=== PATIENT | male | born 1970 | race Asian ===

== ENCOUNTER 2017-03-05 02:07 | Observation (INO) | payer OTHER ==
[2017-03-05] VITALS (312 sets, daily range): BP systolic 129–140; BP diastolic 98–100; PULSE 80–98; TEMP 97.6–98.2; O2SAT 89–100
[~2017-03-05] VITALS: Ht 170.2 cm; Wt 73.7 kg
[~2017-03-05 02:07] MED LIST: ASPIRIN 32325 MG/TAB PO; MULTIPLE VITAMI1 TA1 PO; MUSCLE MILK PO; PEPCID 20MG TAB20 MG PO; ZESTRIL2.5 MG PO; ZYBAN150 MG PO; ZYRTEC 10MG10 MG PO
[2017-03-05 02:31] LABS: BASO # 0.1 (0.0-0.2); BASO % 0.7 % (0.0-2.0); EOS # 0.2 (0.0-0.7); EOS % 1.6 % (0-4.0); GRAN # 6.4 (1.4-6.5); GRAN % 65.1 % (42.2-75.2); HEMATOCRIT 40.6 % (42.0-52.0); HEMOGLOBIN 13.5 g/dl (13.5-18.0); LYMPH # 2.6 (1.2-3.4); LYMPH % 26.7 % (20.0-51.0); MEAN CELL VOLUME 90 fl (80.0-100.0); MEAN CORPUSCULAR HEMOGLOBIN 30 pg (27.0-31.0); MEAN CORPUSCULAR HGB CONC 33 g/dl (33.0-37.0); MEAN PLATELET VOLUME 8.7 fl (7.4-10.4); MONO # 0.6 (0.1-0.6); MONO % 5.6 % (1.7-9.3); PLATELET COUNT 329 K/mm3 (130-400); RED BLOOD COUNT 4.52 M/mm3 (4.20-5.60); REDCELL DISTRIBUTION WIDTH-CV 13.7 % (11.5-14.5); WHITE BLOOD COUNT 9.8 K/mm3 (4.8-10.8)
[2017-03-05 02:40] LABS: ADJUSTED CALCIUM 8.1 mg/dL (8.4-10.2); ALANINE AMINOTRANSFERASE 29 U/L (21-72); ALBUMIN 4.1 gm/dL (3.5-5.0); ALKALINE PHOSPHATASE 107 U/L (50-136); ANION GAP 13 mmol/L (7-16); BILIRUBIN,TOTAL 0.5 mg/dL (0.0-1.0); BLOOD UREA NITROGEN 17 mg/dL (9-20); CALCIUM 8.2 mg/dL (8.4-10.2); CARBON DIOXIDE 23 mmol/L (22-30); CHLORIDE 105 mmol/L (98-107); GLUCOSE 108 mg/dL (74-106); POTASSIUM 3.1 mmol/L (3.4-5.0); SODIUM 141 mmol/L (137-145); TOTAL PROTEIN 7.2 gm/dL (6.4-8.2)
[2017-03-05 02:45] LABS: ACETAMINOPHEN < 10 ug/mL (10-30); SALICYLATE < 1.0 mg/dL
[2017-03-05 02:56] LABS: PROLACTIN 12.1 ng/mL (3.7-17.9)
[2017-03-05 03:02] LABS: TROPONIN-I < 0.012 ng/mL (0.000-0.034)
[2017-03-05 06:34] LABS: AMPHETAMINE URINE NEGATIVE; BARBITURATES URINE NEGATIVE; BENZODIAZEPINES URINE NEGATIVE; BUPRENORPHINE URINE NEGATIVE; METHADONE URINE NEGATIVE; OPIATES URINE NEGATIVE; OXYCODONE URINE NEGATIVE; PHENCYCLIDINE URINE NEGATIVE; PROPOXYPHENE URINE NEGATIVE; THC CANNABINOIDS URINE NEGATIVE
[2017-03-05] MEDS ORDERED: ABILIFY5 MG PO ×2 (06:47→16:45)
[2017-03-05] MEDS ORDERED: AMBIEN 5MG TABLE5 MG PO ×2 (06:48→16:45)
[2017-03-05] MEDS ORDERED: ZOLOFT 50MG50 MG PO ×2 (06:48→16:45)
[2017-03-05] MEDS ORDERED: MICARDIS40 MG PO ×2 (06:48→16:45)
[2017-03-05] MEDS ORDERED: DESYREL 50MG50 MG PO (06:49)
[2017-03-05] MEDS ORDERED: BENADRYL25 M2 PO ×2 (06:50→16:45)
[2017-03-05] MEDS ORDERED: VIAGRA50 M1 (14:24)
[2017-03-05] MEDS ORDERED: CELEBREX50 MG PO (14:25)
[2017-03-05] MEDS ORDERED: MINIPRESS 5M5 MG/CAP PO ×2 (14:36→16:45)
[2017-03-05] MEDS ORDERED: KEPPRA 500MG500 MG PO (16:45)
== END 2017-03-05 16:57 | disposition home or self-care (01) ==
LOC: COL.ER 02:07 → IMCU 05:50 → COL.ER 06:11 → IMCU 16:57
PROVIDERS: Emergency Medicine
DX: G40.409 Other generalized epilepsy and epileptic syndromes, not intractable, without status epilepticus (principal); S00.512A Abrasion of oral cavity, initial encounter; F43.10 Post-traumatic stress disorder, unspecified; F31.9 Bipolar disorder, unspecified; F41.9 Anxiety disorder, unspecified; F17.210 Nicotine dependence, cigarettes, uncomplicated
CPT/HCPCS: A9585; G0378; J1953; J7030